=== PATIENT | female | born 1960 | race African-American/Black ===

== ENCOUNTER 2020-04-07 13:53 | Emergency (ER) | payer OTHER ==
[~2020-04-07] VITALS: Ht 160 cm; Wt 87.0 kg
[2020-04-07 15:15] VITALS: BP 142/89
== END 2020-04-07 15:15 | disposition home or self-care (01) ==
LOC: ER 14:38
DX: H53.8 Other visual disturbances (principal); H43.392 Other vitreous opacities, left eye; Z88.2 Allergy status to sulfonamides
CPT/HCPCS: 99282